=== PATIENT | male | born 1985 | race Caucasian/White ===

== ENCOUNTER 2023-12-15 16:57 | Emergency (ER) | payer MEDICAID, OTHER ==
[~2023-12-15] VITALS: Ht 177.8 cm; Wt 95.8 kg
[2023-12-15] MEDS: HYDROcodone/acetaminophen 5mg/325mg tablet PO ONE (18:02)
[2023-12-15 18:25] LABS: BASOPHILS # (AUTO) 0.1 X10'3 (0-0.2); BASOPHILS % (AUTO) 0.8 % (0-1); EOSINOPHILS # (AUTO) 0.1 X10'3 (0-0.9); EOSINOPHILS % (AUTO) 1.6 % (0-6); HEMATOCRIT 40.2 % (42.0-52.0); HEMOGLOBIN 13.3 g/dl (14.0-17.9); LYMPHOCYTES # (AUTO) 2.6 X10'3 (1.1-4.8); LYMPHOCYTES % (AUTO) 29.9 % (21-51); MEAN CORPUSCULAR HEMOGLOBIN 29.4 PG (27.0-31.0); MEAN CORPUSCULAR HGB CONC 33.1 g/dL (33.0-36.5); MEAN CORPUSCULAR VOLUME 88.9 FL (78-98); MEAN PLATELET VOLUME 7.6 FL (7.4-10.4); MONOCYTES # (AUTO) 0.7 X10'3 (0-0.9); MONOCYTES % (AUTO) 8.2 % (2-12); NEUTROPHILS # (AUTO) 5.2 X10'3 (1.8-7.7); NEUTROPHILS % (AUTO) 59.5 % (42-75); PLATELET COUNT 299 X10'3 (140-440); RED BLOOD COUNT 4.52 X10'6 (4.70-6.10); RED CELL DISTRIBUTION WIDTH 14.1 % (11.5-14.5); WHITE BLOOD COUNT 8.8 X10'3 (4.5-11.0)
[2023-12-15 19:08] LABS: ALANINE AMINOTRANSFERASE 40 U/L (12-78); ALBUMIN/GLOBULIN RATIO 1.1 (1.1-1.5); ALKALINE PHOSPHATASE 81 IU/L (46-116); ANION GAP 8 (8-16); ASPARTATE AMINO TRANSFERASE 25 U/L (10-37); BILIRUBIN,TOTAL 0.3 MG/DL (0.1-1.0); BLOOD UREA NITROGEN 21 MG/DL (7-18); BUN/CREATININE RATIO 23.3 (10.0-20.0); C-REACTIVE PROTEIN 2.07 MG/DL (0.0-0.5); CALCIUM 9.4 MG/DL (8.5-10.1); CHLORIDE 105 MMOL/L (99-107); GLUCOSE 75 MG/DL (70-104); POTASSIUM 3.7 MMOL/L (3.5-5.1); SODIUM 143 MMOL/L (135-145); TOTAL CARBON DIOXIDE 30.3 MMOL/L (24-32); TOTAL PROTEIN 7.7 G/DL (6.4-8.2); eCRCL 113 ML/MIN; eGFR > 90 ML/MIN
[2023-12-15] MEDS: LIDOcaine 1% 30ml preserv. free vial IJ STA (19:27)
[2023-12-15] MEDS ORDERED: ketorolac trometh. 30mg/ml inj. IM ONE (19:55)
[2023-12-15] MEDS ORDERED: HYDR-3965 PO (19:57)
[2023-12-15] MEDS ORDERED: CLIN300C54 PO (19:57)
[2023-12-15] MEDS: CefTRIAXone 1000mg IM Kit (w/lidocaine diluent) IM ONE (20:03)
[2023-12-15] MEDS: ketorolac tromethamine 15mg/ml inj. IM ONE (20:03)
[2023-12-15 20:19] VITALS: BP 154/69; PULSE 90; RESP 17; TEMP 98.9; O2SAT 99
== END 2023-12-15 20:20 | disposition home or self-care (01) ==
LOC: ER 16:57
DX: L02.512 Cutaneous abscess of left hand (principal); F17.200 Nicotine dependence, unspecified, uncomplicated; Z79.1 Long term (current) use of non-steroidal anti-inflammatories (NSAID)
CPT/HCPCS: 10060; 36415; 73130; 80053; 83605; 84145; 85025; 85651; 86140; 87040; 96372; 99284; J0696; J1885; A6449

== ENCOUNTER 2023-12-20 10:48 | Emergency (ER) | payer MEDICAID ==
[~2023-12-20] VITALS: Ht 177.8 cm; Wt 97.3 kg
[~2023-12-20 10:48] MED LIST: CLIN300C54 PO; HYDR-3965 PO
[2023-12-20 12:11] VITALS: BP 131/99; PULSE 71; RESP 16; TEMP 97.7; O2SAT 98
== END 2023-12-20 12:12 | disposition home or self-care (01) ==
LOC: ER 10:49
DX: L02.512 Cutaneous abscess of left hand (principal); Z79.2 Long term (current) use of antibiotics
CPT/HCPCS: 99281